=== PATIENT | female | born 1950 | race Caucasian/White ===

== ENCOUNTER 2016-07-25 07:16 | Emergency (ER) | payer OTHER ==
[~2016-07-25] VITALS: Ht 167.6 cm; Wt 78.0 kg
[2016-07-25 07:19] VITALS: BP 147/83; PULSE 93; RESP 16; TEMP 99.1; O2SAT 95
--- NOTE | 2016-07-25 07:37 | PD ---
HPI Chief Complaint: Back/ Neck Pain or Injury Time Seen by Provider: 07:34 Travel History International Travel<30 days: No Contact w/Intl Traveler<30days: No Traveled to known affect area: No History of Present Illness HPI 66-year-old female with history of no significant past medical issues, presents to the ER today with 2 days history of right upper back pains that started on its own, worse with movements. She states is currently an 8 out of 10 and is spasmodic in nature, coming in waves intermittently. She denies any chest pains , shortness of breath, coughing, fevers, or any other symptoms. Modifying Factors: None Associated Signs & Symptoms: Right upper back pain Risk Factors: None PFSH Past Medical History ?: Not Social History Tobacco Use: No Allergies-Medications (Allergen,Severity, Reaction): Coded Allergies: No Known Allergies (Unverified , 07/25/16) Reported Meds & Prescriptions Reported Meds & Active Scripts Active Reported [colitis med] Unknown Strength Unknown Dose PO DAILY Ventolin Hfa 18 GM Inh (Albuterol Sulfate) 90 Mcg/Act Aer 2 Puff INH Q4-6H PRN K-Tab (Potassium Chloride) 10 Meq Tab 10 Meq PO ALONG WITH LASIX Lasix (Furosemide) 40 Mg Tab 40 Mg PO DAILY PRN Synthroid (Levothyroxine Sodium) 137 Mcg Tab 137 Mcg PO DAILY Review of Systems Except as stated in HPI: all other systems reviewed are Neg Physical Exam Narrative GENERAL: Well-developed elderly white female patient currently in intermittent mild distress. Awake and oriented 3. SKIN: Focused skin assessment warm/dry. HEAD: Atraumatic. Normocephalic. EYES: Pupils equal and round. No scleral icterus. No injection or drainage. ENT: No nasal bleeding or discharge. Mucous membranes pink and moist. NECK: Trachea midline. No JVD. Supple. CARDIOVASCULAR: Regular rate and rhythm. No murmur appreciated. Pulses are present and equal bilaterally. RESPIRATORY: No accessory muscle use. Clear to auscultation. Breath sounds equal bilaterally. GASTROINTESTINAL: Abdomen soft, non-tender, nondistended. Hepatic and splenic margins not palpable. BACK: No CVA tenderness. No rash. No point tenderness on palpation of the spine. There is mild tenderness in the right posterior thoracic area with no point tenderness, crepitus, or deformities identified. MUSCULOSKELETAL: No obvious deformities. No clubbing. No cyanosis. No edema. NEUROLOGICAL: Awake and alert. No obvious cranial nerve deficits. Motor grossly within normal limits. Normal speech. PSYCHIATRIC: Appropriate mood and affect; insight and judgment normal. Data Data Last Documented VS Vital Signs Date Time Temp Pulse Resp B/P Pulse Ox O2 Delivery O2 Flow Rate FiO2 07/25/16 07:28 16 07/25/16 07:19 99.1 93 147/83 95 Orders Chest, Single Ap (07/25/16 07:34) Cyclobenzaprine (Flexeril) (07/25/16 07:45) [facility] Medical Decision Making Medical Screen Exam Complete: Yes Emergency Medical Condition: Yes Medical Record Reviewed: Yes Interpretation(s) Last 24 hours Impressions Chest X-Ray 07/25/16 0734 Signed Impressions: Service Date/Time: , July 25, 2016 07:45 - CONCLUSION: No acute disease. Gus Carlson MD Differential Diagnosis Right posterior thoracic painmuscle spasms versus strain versus fracture Narrative Course Vital signs are stable. Chest x-ray did not show any signs of acute pulmonary processes or obvious acute bony processes. At this point, symptoms are consistent with muscle spasms. Patient states she has some history of chronic back issues and back pains for which she has been getting massage therapy. She had massage therapy just a week ago. She denies any fevers, neurological symptoms, and there does not appear to be any point tenderness. At this point, my plan would be to give her symptomatic treatment for muscle spasms and follow- up with primary care physician. Return for any worsening in symptoms as necessary. The plan has been discussed with the patient and she states understanding. Diagnosis Primary Impression: Muscle spasm of back Med/Other Pt SpecificInfo: Prescription(s) given Scripts Ibuprofen (Motrin Ib)200 Mg [id number] Mg PO Q6H PRN (PAIN SCALE 1 TO 10) #21 TAB Ref 0 Prov:Nehemias Montero MD 07/25/16 Cyclobenzaprine (Flexeril)10 Mg Tab10 Mg PO TID #15 TAB Ref 0 Prov:Nehemias Montero MD 07/25/16 Disposition: 01 DISCHARGE HOME Condition: Stable Nehemias Montero MD July 25, 2016 07:37
[2016-07-25] MEDS ORDERED: LEVO-86 PO (07:41)
[2016-07-25] MEDS ORDERED: K-TA10TA PO (07:41)
[2016-07-25] MEDS ORDERED: VENTAER INH (07:41)
[2016-07-25] MEDS ORDERED: [UNRECOGNIZED DRUG - OTHER] PO (07:41)
[2016-07-25] MEDS ORDERED: FURO1TAB60 PO (07:41)
[2016-07-25] MEDS ORDERED: CYCLOBENZAPRINE HCL 10 MG TAB PO ONE (07:45)
--- NOTE | 2016-07-25 07:58 | RADHPO ---
EXAM DATE/TIME: 07/25/2016 07:45 [place] COMPARISON: No previous studies available for comparison. INDICATIONS : Patient has had back spasms since yesterday. Pain is on her right side up near shoulder blade region. MEDICAL HISTORY : None. SURGICAL HISTORY : None. ENCOUNTER: Initial ACUITY: 1 day PAIN SCORE: 8/10 LOCATION: Right Shoulder blade region. FINDINGS: A single view of the chest demonstrates the lungs to be symmetrically aerated without evidence of mas s, infiltrate or effusion. The cardiomediastinal contours are unremarkable. Osseous structures are intact. Anchors in the right shoulder from previous surgery. CONCLUSION: No acute disease. Gus Carlson MD on July 25, 2016 at 7:55 Board Certified Radiologist. This report was verified electronically.
[2016-07-25] MEDS ORDERED: CYCL1TAB29 PO (08:12)
[2016-07-25] MEDS ORDERED: MOTR200T4 PO (08:12)
== END 2016-07-25 08:21 | disposition home or self-care (01) ==
LOC: PHED 07:16
DX: M62.830 Muscle spasm of back (principal)
CPT/HCPCS: 71010; 99283

== ENCOUNTER 2018-05-07 12:14 | Observation (INO) ==
--- NOTE | 2018-05-07 12:35 | ED ---
HPI General Chief Complaint: Chest Pain Stated Complaint: chest pain prior to arrival/ H/A Time Seen by Provider: 05/07/18 12:33 Source: patient Mode of arrival: ambulatory Limitations: no limitations History of Present Illness HPI narrative: Patient states allergy to codeine, past surgical history appendectomy 1971 Past medical history significant for asthma arthritis carpal tunnel torn meniscus repair in November of this year, hypothyroid. Patient recently moved from [place] does not have a local physician Patient states that she has had substernal chest pressure/epigastric type of discomfort which is nonradiating, was 10 out of 10 onset at 1130 and currently rated as a 1 out of 10. Patient states that the pain was so significant that she bent over and nearly passed out from the severity of the pain. Patient denies any nausea vomiting diarrhea back pain. MD complaint: Reports chest pain STEMI Alert: No Onset (ago): hour(s) (1) Duration: improved Onset: during rest Pain location: Reports epigastric Severity: moderate Severity scale (1-10): 1 Quality: Reports tightness Pain radiation: Reports none Relieving factors: nothing Exacerbating factors: nothing Treatments prior to arrival chest pain: Reports none Related Data Home Medications Medication Instructions Recorded Confirmed celecoxib [Celebrex] 50 mg PO BID 05/07/18 05/07/18 levothyroxine [Synthroid] 150 mcg PO DAILY 05/07/18 05/07/18 Allergies Allergy/AdvReac Type Severity Reaction Status Date / Time No Known Allergies Allergy Verified 05/07/18 12:22 Review of Systems ROS: all other systems reviewed are negative PMFSH History History Provided By: Patient Social History Social History Substance History: No History of Abuse Second Hand Smoke Exposure: No Smoking Status: Never smoker How Often Do You Have a Drink Containing Alcohol: Monthly or less Recent Travel in [place] within the Last 8 Weeks: No Recent Out of Country Travel within the Last 8 Weeks: No Immunization History Tetanus Immunization: <5 Years Exam Narrative Exam Narrative: GENERAL: Well-nourished, well-developed patient in no apparent distress. SKIN: Warm and dry. HEAD: Atraumatic. Normocephalic. EYES: Pupils equal and round. No scleral icterus. No injection or drainage. ENT: No nasal bleeding or discharge. Mucous membranes pink and moist. NECK: Trachea midline. No JVD. CARDIOVASCULAR: Regular rate and rhythm. no rubs or gallops RESPIRATORY: No accessory muscle use. Clear to auscultation. Breath sounds equal bilaterally. GASTROINTESTINAL: Abdomen soft, non-tender, nondistended. No rebound or guarding MUSCULOSKELETAL: Extremities without clubbing, cyanosis, or edema. No obvious deformities. NEUROLOGICAL: Awake and alert. No obvious cranial nerve deficits. Motor grossly within normal limits. Five out of 5 muscle strength in the arms and legs. Normal speech. PSYCHIATRIC: Appropriate mood and affect; insight and judgment normal. Course Initial Documented Vital Signs Temperature 98 F 05/07/18 12:18 Pulse Rate 80 05/07/18 12:18 Respiratory Rate 14 05/07/18 12:18 Blood Pressure 153/70 H 05/07/18 12:18 Pulse Oximetry 98 05/07/18 12:18 Last Documented Vital Signs Temperature 98 F 05/07/18 12:18 Pulse Rate 80 05/07/18 12:18 Respiratory Rate 14 05/07/18 12:18 Blood Pressure 153/70 H 05/07/18 12:18 Pulse Oximetry 100 05/07/18 13:19 Medical Decision Making MDM Narrative Medical decision making narrative: No leukocytosis, no anemia, no left shift, normal platelet count Coagulation profile is within normal limits Elect lites are all within normal limits. Normal kidney liver pancreatic functions First set of cardiac enzymes negative, normal beta natruretic peptide Chest x-ray is read by radiologist as no acute cardiopulmonary disease. Medical Screen Exam Complete: Yes Emergency Medical Condition: Yes Medical Records Medical records reviewed: Yes I reviewed the patient's medical records. Lab Data Result diagrams: 05/07/18 12:50 05/07/18 12:50 Lab Results 05/07/18 05/07/18 05/07/18 Range/Units 12:50 12:50 12:50 CBC w Diff Auto diff final WBC 6.2 (4.0-11.0) th/mm3 RBC 4.47 (4.00-5.30) mil/mm3 Hgb 13.3 (11.6-15.3) gm/dL Hct 39.0 (35.0-46.0) % MCV 87.3 (80.0-100.0) fL MCH 29.8 (27.0-34.0) pg MCHC 34.1 (32.0-36.0) % RDW 12.6 (11.6-17.2) % Plt Count 239 (150-450) th/mm3 MPV 8.7 (7.0-11.0) fL Neut % (Auto) 63.3 (16.0-70.0) % Lymph % (Auto) 24.3 (9.0-44.0) % [place] % (Auto) 8.0 (0.0-8.0) % Eos % (Auto) 3.7 (0.0-4.0) % Baso % (Auto) 0.7 (0.0-2.0) % Neut # (Auto) 4.0 (1.8-7.7) th/mm3 Lymph # (Auto) 1.5 (1.0-4.8) th/mm3 [place] # (Auto) 0.5 (0.0-0.9) th/mm3 Eos # (Auto) 0.2 (0.0-0.4) th/mm3 Baso # (Auto) 0.0 (0.0-0.2) th/mm3 WBC Differential . Differential Comment . PT 10.2 (9.8-11.6) sec INR 1.0 Ratio APTT 28.1 (23.4-31.7) sec Sodium 138 (136-145) meq/L Potassium 3.8 (3.5-5.1) meq/L Chloride 106 (98-107) meq/L Carbon Dioxide 27.6 (21.0-32.0) meq/L Anion Gap 4 L (5-15) meq/L BUN 16 (7-18) mg/dL Creatinine 0.91 (0.50-1.00) mg/dL Estimated GFR 62 L (>89) mL/min Random Glucose 112 H (74-106) mg/dL Calcium 8.4 L (8.5-10.1) mg/dL Total Bilirubin 0.4 (0.2-1.0) mg/dL AST 26 (15-37) U/L ALT 44 (10-53) U/L Alkaline Phosphatase 116 (45-117) U/L Total Creatine Kinase 77 (26-192) U/L Troponin I Less than 0.02 L (0.02-0.05) ng/mL B-Natriuretic Peptide (0-100) pg/mL Total Protein 6.7 (6.4-8.2) g/dL Albumin 3.5 (3.4-5.0) g/dL 05/07/18 Range/Units 12:50 CBC w Diff WBC (4.0-11.0) th/mm3 RBC (4.00-5.30) mil/mm3 Hgb (11.6-15.3) gm/dL Hct (35.0-46.0) % MCV (80.0-100.0) fL MCH (27.0-34.0) pg MCHC (32.0-36.0) % RDW (11.6-17.2) % Plt Count (150-450) th/mm3 MPV (7.0-11.0) fL Neut % (Auto) (16.0-70.0) % Lymph % (Auto) (9.0-44.0) % [place] % (Auto) (0.0-8.0) % Eos % (Auto) (0.0-4.0) % Baso % (Auto) (0.0-2.0) % Neut # (Auto) (1.8-7.7) th/mm3 Lymph # (Auto) (1.0-4.8) th/mm3 [place] # (Auto) (0.0-0.9) th/mm3 Eos # (Auto) (0.0-0.4) th/mm3 Baso # (Auto) (0.0-0.2) th/mm3 WBC Differential Differential Comment PT (9.8-11.6) sec INR Ratio APTT (23.4-31.7) sec Sodium (136-145) meq/L Potassium (3.5-5.1) meq/L Chloride (98-107) meq/L Carbon Dioxide (21.0-32.0) meq/L Anion Gap (5-15) meq/L BUN (7-18) mg/dL Creatinine (0.50-1.00) mg/dL Estimated GFR (>89) mL/min Random Glucose (74-106) mg/dL Calcium (8.5-10.1) mg/dL Total Bilirubin (0.2-1.0) mg/dL AST (15-37) U/L ALT (10-53) U/L Alkaline Phosphatase (45-117) U/L Total Creatine Kinase (26-192) U/L Troponin I (0.02-0.05) ng/mL B-Natriuretic Peptide 24 (0-100) pg/mL Total Protein (6.4-8.2) g/dL Albumin (3.4-5.0) g/dL Imaging Data Radiologist's impression: Chest X-Ray 05/07/18 12:35 CONCLUSION: No acute cardiopulmonary disease. ECG Data EKG Prior to Arrival: No Attestation: I personally reviewed and interpreted this ECG as follows: Prior ECG tracings: not available for review Interpretation: Sinus rhythm, 74 bpm, normal intervals, incomplete right bundle branch block pattern, no evidence of any acute ST elevation WI pattern. Discharge Plan Discharge Disposition Patient Disposition: ED Admit(ED Internal Use Only) Discharge Condition Condition: Stable Discharge Order Discharge Orders: ED Use Only Admit Order (Routine); Ordered 05/07/18 Ordered By: Hugh Emerson Discharge Details Diagnosis: Atypical chest pain Physicians Team ED Provider: Hugh Emerson Primary Care Provider: Primary Care EvelyniNyasia Rxs /Orders / Referrals /Forms Prescriptions: No Action levothyroxine [Synthroid] 150 mcg Tablet 150 mcg PO DAILY RF: 0 celecoxib [Celebrex] 50 mg Capsule 50 mg PO BID RF: 0 Discharge Instructions Patient Printed Instructions: Chest Pain (ED) Status ED Status: Pending Admission
[2018-05-07 12:55] LABS: Baso % (Auto) 0.7 % (0.0-2.0); Eos # (Auto) 0.2 th/mm3 (0.0-0.4); Eos % (Auto) 3.7 % (0.0-4.0); Hemoglobin 13.3 gm/dL (11.6-15.3); Lymph # (Auto) 1.5 th/mm3 (1.0-4.8); Lymph % (Auto) 24.3 % (9.0-44.0); Mean Corpuscular HGB Conc 34.1 % (32.0-36.0); Mean Corpuscular Hemoglobin 29.8 pg (27.0-34.0); Mean Corpuscular Volume 87.3 fL (80.0-100.0); Mean Platelet Volume 8.7 fL (7.0-11.0); Mono # (Auto) 0.5 th/mm3 (0.0-0.9); Neut % (Auto) 63.3 % (16.0-70.0); Platelet Count 239 th/mm3 (150-450); Red Blood Count 4.47 mil/mm3 (4.00-5.30); Red Cell Distribution Width 12.6 % (11.6-17.2); White Blood Count 6.2 th/mm3 (4.0-11.0)
--- NOTE | 2018-05-07 13:01 | XR ---
EXAM DATE: 05/07/2018 12:57 PM EST AGE/SEX: 68 years / Female INDICATIONS: Chest pain & nausea today. CLINICAL DATA: This is the patient's initial encounter. Patient reports that signs and symptoms have been present for 1 day and indicates a pain score of 10/10. MEDICAL/SURGICAL HISTORY: Asthma. Arthritis. Hypothyroidism. Appendectomy. Right shoulder. COMPARISON: [facility], CHEST SINGLE AP, 07/25/2016. . FINDINGS: A single AP view of the chest demonstrates the lungs to be symmetrically aerated without evidence of mass, infiltrate or effusion. The cardiomediastinal contours are unremarkable. Osseous structures a re intact. CONCLUSION: No acute cardiopulmonary disease. Electronically signed by: Jigar Chavez MD Board Certified Radiologist 05/07/2018 12:59 PM EST
[2018-05-07 13:02] LABS: Chloride 106 meq/L (98-107); Potassium 3.8 meq/L (3.5-5.1); Sodium 138 meq/L (136-145)
[2018-05-07 13:05] LABS: Calcium 8.4 mg/dL (8.5-10.1)
[2018-05-07 13:06] LABS: Albumin 3.5 g/dL (3.4-5.0); Anion Gap 4 meq/L (5-15); Blood Urea Nitrogen 16 mg/dL (7-18); Carbon Dioxide 27.6 meq/L (21.0-32.0); Glucose,Random 112 mg/dL (74-106)
[2018-05-07 13:09] LABS: Activated Partial Thrombo Time 28.1 sec (23.4-31.7); Alanine Aminotransferase 44 U/L (10-53); Aspartate Aminotransferase 26 U/L (15-37); Glomerular Filtration Rate 62 mL/min (>89); Prothrombin Time 10.2 sec (9.8-11.6)
[2018-05-07 13:10] LABS: Total Protein 6.7 g/dL (6.4-8.2)
[2018-05-07 13:12] LABS: Alkaline Phosphatase 116 U/L (45-117)
[2018-05-07 13:13] LABS: Creatine Kinase 77 U/L (26-192)
--- NOTE | 2018-05-07 16:33 | P.HPIM ---
History of Present Illness Primary Care Physician: No Primary Care Physician Chief Complaint: Chest pain History of Present Illness: This is a very pleasant 68-year-old female patient with a known medical history of hypothyroidism who presented to the ED with complaints of chest pain. Patient states she was at [employer] and while checking out she developed an epigastric mid sternal chest pain that was characteristically sharp in nature, states that the pain radiated down her left arm was associated with nausea and diaphoresis as well as headache, lasted roughly 5-6 minutes and went away on its own. She states she drank some water and that helped with the pain as well. She rates the pain a 10 out of 10 at its worst on pain scale. Prior to this episode she has been relatively stable, states that last evening she felt just abnormally tired. She is undergoing a lot of stress. Patient denies ever having this type of chest pain before. She does state that she had a cardiac workup 15 years ago and underwent a cardiac cath and at that time everything was reportedly negative per patient report. Patient does have hypothyroidism, TSH was checked in March no changes to her medications. Denies any sick contacts. Denies any recent fever chills, headache, dumping, nausea, vomiting, diarrhea or dysuria. Has been eating and drinking well without any problems. Review of Systems Review of Systems: all other systems reviewed are negative [facility] Social History Social History Substance History: No History of Abuse Second Hand Smoke Exposure: No Smoking Status: Never smoker How Often Do You Have a Drink Containing Alcohol: 4 or more times a week Recent Travel in [facility] within the Last 8 Weeks: No Recent Out of Country Travel within the Last 8 Weeks: No Immunization History Tetanus Immunization: <5 Years Medications and Allergies Allergies Allergy/AdvReac Type Severity Reaction Status Date / Time No Known Allergies Allergy Verified 05/07/18 12:22 Home Medications Medication Instructions Recorded Confirmed Type celecoxib 200 mg PO HS 05/07/18 05/07/18 History levothyroxine [Synthroid] 150 mcg PO DAILY 05/07/18 05/07/18 History trazodone 50 mg PO HS 05/07/18 05/07/18 History Active Medications: Active Medications Celecoxib (Celebrex) 200 mg PO HS IVETH Heparin Sodium (Porcine) (Heparin Inj) 5,000 units SQ Q12H IVETH Levothyroxine Sodium (Synthroid) 150 mcg PO DAILY [facility] Nitroglycerin (Nitrostat Sl) 0.4 mg SL Q5M PRN PRN Reason: CHEST PAIN Sodium Chloride (Ns Flush) 2 ml IV.FLUSH UNSCH PRN PRN Reason: FLUSH AFTER USING IV ACCESS Sodium Chloride (Ns Flush) 2 ml IV.FLUSH BID IVETH Sodium Chloride (Ns Flush) 2 ml IV.FLUSH PRN PRN PRN Reason: FLUSH AFTER USING IV ACCESS Trazodone HCl (Desyrel) 50 mg PO HS [facility] Physical Exam Vital signs: Vital Signs 05/07/18 12:18 05/07/18 13:19 05/07/18 13:50 Temperature 98 F 98.6 F Pulse Rate 80 66 Respiratory Rate 14 20 Blood Pressure 153/70 H 166/92 H Pulse Oximetry 98 100 97 Intake & Output 05/06/18 05/07/18 05/07/18 18:59 06:59 18:59 Weight 84.2 kg Other: Weight On Admission 84.2 kg Narrative: GENERAL: Well-developed, well-nourished patient in [facility]. SKIN: Warm and dry. No rash. HEAD: Normocephalic. Atraumatic. EYES: Pupils equal and round. No scleral icterus. No injection or drainage. ENT: No nasal bleeding or discharge. Mucous membranes pink and moist. NECK: Supple. Trachea midline. CARDIOVASCULAR: Regular rate and rhythm. S1, S2 noted. No murmur appreciated. No reproducible chest pain to palpation. RESPIRATORY: No accessory muscle use. Clear to auscultation. Breath sounds equal bilaterally. GASTROINTESTINAL: Abdomen soft, non-tender, nondistended. Normoactive bowel sounds x4. MUSCULOSKELETAL: No obvious deformities. Extremities without clubbing, cyanosis , or edema. NEUROLOGICAL: Awake and alert. No obvious cranial nerve deficits. Motor grossly within normal limits. 5/5 muscle strength in bilateral upper and lower extremities. Normal speech. PSYCHIATRIC: Appropriate mood and affect; insight and judgment normal. Results Labs CBC & Chem 7: 05/07/18 12:50 05/07/18 12:50 Imaging Impressions Chest X-Ray 05/07/18 12:35 CONCLUSION: No acute cardiopulmonary disease. Caprini VTE Risk Assessment Caprini VTE Risk Assessment: Moderate/High Risk (score >= 2) Caprini Risk Assessment Model: Point Value = 1 Point Value = 2 Point Value = 3 Point Value = 5 Age 41-60 Minor surgery BMI > 25 kg/m2 Swollen legs Varicose veins or History of unexplained or recurrent spontaneous Oral contraceptives or hormone replacement Sepsis (< 1 month) Serious lung disease, including pneumonia (< 1 month) Abnormal pulmonary function Acute myocardial infarction Congestive heart failure (< 1 month) History of inflammatory bowel disease Medical patient at bed rest Age 61-74 Arthroscopic surgery Major open surgery (> 45 min) Laparoscopic surgery (> 45 min) Malignancy Confined to bed (> 72 hours) Immobilizing plaster cast Central venous access Age >= 75 History of VTE Family history of VTE Factor V Leiden Prothrombin [id number] Lupus anticoagulant Anticardiolipin antibodies Elevated serum homocysteine Heparin-induced thrombocytopenia Other congenital or acquired thrombophilia Stroke (< 1 month) Elective arthroplasty Hip, pelvis, or leg fracture Acute spinal cord injury (< 1 month) Prophylaxis Regimen: Total Risk Factor Score Risk Level Prophylaxis Regimen 0-1 Low Early ambulation 2 Moderate Order ONE of the following: *Sequential Compression Device (SCD) *Heparin 5000 units SQ BID 3-4 Higher Order ONE of the following medications: *Heparin 5000 units SQ TID *Enoxaparin/Lovenox 40 mg SQ daily (WT < 150 kg, CrCl > 30 mL/min) *Enoxaparin/Lovenox 30 mg SQ daily (WT < 150 kg, CrCl > 10-29 mL/min) *Enoxaparin/Lovenox 30 mg SQ BID (WT < 150 kg, CrCl > 30 mL/min) AND/OR *Sequential Compression Device (SCD) 5 or more Highest Order ONE of the following medications: *Heparin 5000 units SQ TID (Preferred with Epidurals) *Enoxaparin/Lovenox 40 mg SQ daily (WT < 150 kg, CrCl > 30 mL/min) *Enoxaparin/Lovenox 30 mg SQ daily (WT < 150 kg, CrCl > 10-29 mL/min) *Enoxaparin/Lovenox 30 mg SQ BID (WT < 150 kg, CrCl > 30 mL/min) AND *Sequential Compression Device (SCD) Assessment and Plan Plan This is a pleasant 68-year-old female patient with a known medical history of hypothyroidism, asthma who presented to the ED with complaints of chest pain. Chest pain -Patient has been admitted to chest pain center for observation. -Serial EKGs and serial troponins have been ordered for ruling out ACS purposes. Initial troponin flat. Continue to monitor trend. -EKG reviewed showing normal sinus rhythm with right bundle branch block, no ST changes noted. -Will continue on cardiac telemetry, monitor for any arrhythmias. -CBC and BMP reviewed, essentially unremarkable. Lipid panel added to labs. Follow. -BNP 24. Chest x-ray reviewed showing no acute cardiopulmonary disease. -Patient's risk factors for coronary artery disease include age as well as history of dyslipidemia although she does not take anything at home for cholesterol. -If ACS ruled out with serial EKGs and serial troponins, patient will undergo cardiac stress test to further rule out any ischemia. -Patient is stable at this time and agreeable to plan. -Further hospitalization and treatment plan will depend on nuclear imaging results. Hypothyroidism -Last TSH checked in March. Will continue levothyroxine from home. DVT prophylaxis: SCDs. Ambulation. Heparin. Discussed with patient, bedside RN and Dr. sandoval H&P: Quality VTE Deep Vein Thrombosis/Pulmonary Embolism Present on Admission: No
[2018-05-07] MEDS ORDERED: Temazepam 15 MG Capsule PO PRN (16:55)
[2018-05-07] MEDS ORDERED: Morphine Sulfate Inj 2 MG/ML Vial IV.PUSH PRN (16:56)
--- NOTE | 2018-05-07 16:59 | ECG ---
Date Performed: 05/07/2018 Time Performed: 12:26:05 PTAGE: 68 years EKG: Sinus rhythm LOW QRS VOLTAGE IN PRECORDIAL LEADS INCOMPLETE RIGHT BUNDLE BRANCH BLOCK BORDERLINE ECG INTERPRETATI ON BASED ON A DEFAULT AGE OF 90 YEARS NO PREVIOUS TRACING DOCTOR: Calos Pang Interpretating Date/Time 05/07/2018 16:58:26
[2018-05-07 17:09] LABS: Creatine Kinase 72 U/L (26-192)
[2018-05-07] MEDS: Heparin - SQ 10,000 UNITS/ML Vial SQ SCH (17:29)
[2018-05-07] MEDS ORDERED: Regadenoson Inj 0.4 MG/5 ML Syringe IV.PUSH ONE (17:30)
[2018-05-07 19:51] LABS: Creatine Kinase 68 U/L (26-192)
[2018-05-07] MEDS ORDERED: traZODone 50 MG Tablet PO SCH (21:00)
[2018-05-07] MEDS ORDERED: Celecoxib 200 MG Capsule PO SCH (21:00)
--- NOTE | 2018-05-07 21:08 | ECG ---
Date Performed: 05/07/2018 Time Performed: 19:07:10 PTAGE: 68 years EKG: Sinus rhythm LOW QRS VOLTAGE IN PRECORDIAL LEADS INCOMPLETE RIGHT BUNDLE BRANCH BLOCK BORDERLINE ECG PREVIOUS TRACING : 05/07/2018 16.22 No significant change from previous tracing noted. DOCTOR: Calos Pang Interpretating Date/Time 05/07/2018 21:07:24
--- NOTE | 2018-05-07 21:12 | ECG ---
Date Performed: 05/07/2018 Time Performed: 16:22:25 PTAGE: 68 years EKG: Sinus rhythm INCOMPLETE RIGHT BUNDLE BRANCH BLOCK BORDERLINE ECG PREVIOUS TRACING : 05/07/2018 12.26 No significant change from previous tracing noted. DOCTOR: Calos Pang Interpretating Date/Time 05/07/2018 21:11:21
[2018-05-08] MEDS: Heparin - SQ 10,000 UNITS/ML Vial SQ SCH (07:19)
[2018-05-08] MEDS ORDERED: Acetaminophen 325 MG Tablet PO PRN (07:50)
[2018-05-08] MEDS ORDERED: Levothyroxine 150 MCG Tablet PO SCH (09:00)
--- NOTE | 2018-05-08 10:49 | P.PNIM ---
Subjective Interval history: Follow-up chest pain. Patient seen and examined, lying in bed complaining of a headache. Acetaminophen given. Assess response. Denies any chest pain or shortness of breath overnight. Serial EKGs and serial troponins ruled out ACS. Awaiting nuclear scan today. Vital signs are stable. Afebrile. Physical Exam Vital signs: Vital Signs 05/07/18 12:18 05/07/18 13:19 05/07/18 13:50 Temperature 98 F 98.6 F Pulse Rate 80 66 Respiratory Rate 14 20 Blood Pressure 153/70 H 166/92 H Pulse Oximetry 98 100 97 05/07/18 14:45 05/07/18 16:00 05/07/18 19:45 Temperature 97.1 F L Pulse Rate 62 63 Respiratory Rate 21 Blood Pressure 152/86 H Pulse Oximetry 98 97 05/07/18 20:00 05/08/18 00:00 05/08/18 04:00 Temperature 97.1 F L 96.8 F L 97.3 F L Pulse Rate 60 59 L 63 Respiratory Rate 20 20 20 Blood Pressure 142/77 H 146/68 H 131/69 Pulse Oximetry 98 94 L 93 L 05/08/18 08:00 05/08/18 09:52 Temperature 97.9 F Pulse Rate 78 Respiratory Rate 20 Blood Pressure 132/75 Pulse Oximetry 97 97 Intake & Output 05/07/18 05/08/18 05/08/18 18:59 06:59 18:59 Intake Total 480 / 480 0 / 0 Output Total 200 / 200 200 / 200 Balance 280 / 280 -200 / -200 Weight 84.2 kg 84.1 kg Intake: Oral 480 / 480 0 / 0 Output: Urine 200 / 200 200 / 200 Other: # Voids 4 Weight On Admission 84.2 kg Narrative: GENERAL: Well-developed, well-nourished patient in [facility]. SKIN: Warm and dry. No rash. HEAD: Normocephalic. Atraumatic. EYES: Pupils equal and round. No scleral icterus. No injection or drainage. ENT: No nasal bleeding or discharge. Mucous membranes pink and moist. NECK: Supple. Trachea midline. CARDIOVASCULAR: Regular rate and rhythm. S1, S2 noted. No murmur appreciated. No reproducible chest pain to palpation. RESPIRATORY: No accessory muscle use. Clear to auscultation. Breath sounds equal bilaterally. GASTROINTESTINAL: Abdomen soft, non-tender, nondistended. Normoactive bowel sounds x4. MUSCULOSKELETAL: No obvious deformities. Extremities without clubbing, cyanosis , or edema. NEUROLOGICAL: Awake and alert. No obvious cranial nerve deficits. Motor grossly within normal limits. 5/5 muscle strength in bilateral upper and lower extremities. Normal speech. PSYCHIATRIC: Appropriate mood and affect; insight and judgment normal. Results Labs CBC & Chem 7: 05/07/18 12:50 05/07/18 12:50 Imaging Imaging: Impressions Chest X-Ray 05/07/18 12:35 CONCLUSION: No acute cardiopulmonary disease. Assessment and Plan Plan This is a pleasant 68-year-old female patient with a known medical history of hypothyroidism, asthma who presented to the ED with complaints of chest pain. Chest pain -Patient has been admitted to chest pain center for observation. -Serial EKGs and serial troponins have been ordered for ruling out ACS purposes. Troponin trend flat. -EKG reviewed showing normal sinus rhythm with right bundle branch block, no ST changes noted. No arrhythmias overnight. -Will continue on cardiac telemetry, monitor for any arrhythmias. -CBC and BMP reviewed, essentially unremarkable. Lipid panel added to labs. Follow. -BNP 24. Chest x-ray reviewed showing no acute cardiopulmonary disease. -Patient's risk factors for coronary artery disease include age as well as history of dyslipidemia although she does not take anything at home for cholesterol. -ACS ruled out with serial EKGs and serial troponins, patient will undergo cardiac stress test to further rule out any ischemia. -Patient is stable at this time and agreeable to plan. -Further hospitalization and treatment plan will depend on nuclear imaging results. Hypothyroidism -Last TSH checked in March. Will continue levothyroxine from home. DVT prophylaxis: SCDs. Ambulation. Heparin. Discussed with patient, bedside RN and Dr. sandoval Progress Note: Quality VTE Deep Vein Thrombosis/Pulmonary Embolism Present on Admission: No
--- NOTE | 2018-05-08 13:11 | NM ---
EXAM DATE: 05/08/2018 12:28 PM EST AGE/SEX: 68 years / Female INDICATIONS:Abnormal EKG. Angina CLINICAL DATA: This is the patient's initial encounter. Patient reports that signs and symptoms have been present for 1 day and indicates a pain score of 10/10. MEDICAL/SURGICAL HISTORY: Asthma. None. COMPARISON: No prior exams available for comparison. DOSE: 8.7 mCi Tc 99m Myoview at rest 26 mCi [id number] at stress 0.4 mg Lexiscan STRESS SYMPTOMS: Nausea, chest pressure and headache. EJECTION FRACTION: 63 % TECHNIQUE: The patient underwent pharmacologic stress with infusion of prescribed dose. Continuous ECG tracing was monitored during stress. Gated SPECT imaging was performed after stress and conventi onal SPECT imaging was performed at rest. The examination was performed on a SPECT/CT scanner, both attenuation and non-corrected datasets were reviewed. FINDINGS: Distribution: The maximum perfused segment at stress is in the anterior wall wall. Perfusion Study: The pattern of perfusion at stress is within normal limits. Gated Study: There are intact wall motion and wall thickening without hypokinetic or dyskinetic segm ents. The ejection fraction is calculated at 63%. RISK CATEGORY: Low (<1% Annual Mortality Rate) CONCLUSION: 1. Negative examination. Electronically signed by: Kevin Adam MD Board Certified Radiologist 05/08/2018 1:10 PM EST
[2018-05-08 13:21] VITALS: BP 160/86; PULSE 101; RESP 21; TEMP 97.5; O2SAT 98
--- NOTE | 2018-05-08 19:26 | TR ---
Date Performed: 05/08/2018 Time Performed: 11:31:14 DOCTOR: Blanco Baeza DRUG LIST: CLINICAL HISTORY: REASON FOR TEST: Chest pain REASON FOR ENDING: OBSERVATION: CONCLUSION: Lexiscan stress test was performed under standard four minute protocol. Radionuclide was injected one minute prior to ending the test. No electrocardiographic abormalities were present to suggest ischemia. Nuclear imaging and interpretation are pending. COMMENTS:
== END 2018-05-08 13:42 | disposition home or self-care (01) ==
LOC: PHED 12:14 → PHEDA 12:14 → PH3 14:22
PROVIDERS: ADMIT Hospitalist; ATTEND Hospitalist
DX: I20.9 Angina pectoris, unspecified; R11.0 Nausea; I45.10 Unspecified right bundle-branch block; Z79.899 Other long term (current) drug therapy; R51 Headache; R07.89 Other chest pain; E78.5 Hyperlipidemia, unspecified; R61 Generalized hyperhidrosis; J45.909 Unspecified asthma, uncomplicated; E03.9 Hypothyroidism, unspecified
CPT/HCPCS: 71010; 71045; 78452; 80053; 82550; 83520; 83880; 84484; 85025; 85610; 85730; 93005; 93017; 99285; A9502; G0378; J1644; J2785; Q9969